=== PATIENT | female | born 1995 | race Caucasian/White ===

== ENCOUNTER 2019-08-02 12:13 | Day surgery (SDC) | payer BC ==
[2019-08-02] MEDS ORDERED: fentaNYL 100 mcg/2 ml 50 MCG/ML VIAL ONE ×2 (12:29→13:45)
[2019-08-02] MEDS ORDERED: Lidocaine 2% PF 5 ML VIAL ONE (12:29)
[2019-08-02] MEDS ORDERED: Midazolam 2 mg/2 ml VIAL 1 mg/ml 2 ml VIAL (2 mg) ONE (12:29)
[2019-08-02] MEDS ORDERED: Propofol 10 MG/ML 20 ML BTL ONE (12:30)
[2019-08-02] MEDS ORDERED: Rocuronium 50 mg VIAL 10 mg/ml 5 ml VIAL (50 mg) ONE (12:30)
[2019-08-02] MEDS ORDERED: Famotidine IV 10 MG/ML 2 ml VIAL (20 mg) IV ONE (12:38)
[2019-08-02] MEDS ORDERED: Buffered Lidocaine 1% SYRIN 1 ml INTRADERM ONE (12:38)
[2019-08-02] MEDS ORDERED: fentaNYL 100 mcg/2 ml 50 MCG/ML VIAL IV PRN (12:39)
[2019-08-02] MEDS ORDERED: diPHENhydraMINE IV 50 MG/ML 1 ml VIAL (BENADRYL) IV PRN (12:39)
[2019-08-02] MEDS ORDERED: Ondansetron 4 mg VIAL 2 MG/ML 2 ml VIAL IV PRN (12:39)
[2019-08-02] MEDS ORDERED: Levalbuterol 0.63MG/3ML NEB UNIT OF USE INH PRN (12:39)
[2019-08-02] MEDS ORDERED: Naloxone 0.4 mg VIAL 0.4 mg/ml 1 ml VIAL IV PRN (12:39)
[2019-08-02] MEDS ORDERED: DiMENhydriNATE IV 50 mg/ml 1 ml VIAL IV PUSH PRN (12:39)
[2019-08-02] MEDS ORDERED: Famotidine IV 10 MG/ML 2 ml VIAL (20 mg) ONE (12:59)
[2019-08-02] MEDS ORDERED: Lactated Ringers 1000 ml BAG 1,000 ML IV SCH (13:00)
[2019-08-02] MEDS ORDERED: ceFOXitin 2 GM IVPREMIX (*) 2 GM/50 ML BAG ONE (13:05)
[2019-08-02] MEDS ORDERED: Ondansetron 4 mg VIAL 2 MG/ML 2 ml VIAL ONE (13:53)
[2019-08-02] MEDS ORDERED: Acetaminophen IV 1 GM/100ML 100 ML ONE (13:53)
[2019-08-02] MEDS ORDERED: Dexamethasone IV 4 MG/ML VIAL 1 ml VIAL ONE (13:53)
[2019-08-02 15:46] VITALS: BP 122/78
== END 2019-08-02 15:45 | disposition home or self-care (01) ==
LOC: OR 12:13
PROVIDERS: ATTEND Obstetrics & Gynecology